=== PATIENT | male | born 1970 | race Two or more races ===

== ENCOUNTER → 2020-08-07 | Outpatient (CLI) | payer MEDICARE, OTHER ==
[~2020-08-07] MED LIST: IOHEXOL 240 MG/ML 50ML VIAL. PO ONE; IOHEXOL 300 MG/ML 100ML VIAL. IV ONE
--- NOTE | 2020-08-07 16:15 | RAD ---
EXAM: Abdomen and pelvis CT with intravenous contrast. HISTORY: Pain. TECHNIQUE: Computed tomographic images of the abdomen and pelvis were obtained following the administ ration of intravenous contrast. Multiplanar reformatting was performed. *One or more of the following individualized dose reduction techniques were utilized for this examina tion: 1. Automated exposure control. 2. Adjustment of the mA and/or kV according to patient size. 3. Use of iterative reconstruction technique. COMPARISON: None. FINDINGS: Evaluation of the lower thorax demonstrates no infiltrate or pleural effusion. There is no suspicious pulmonary nodule. There is hepatic steatosis and hepatomegaly. No suspicious hepatic lesio n is seen. The gallbladder, pancreas, spleen and adrenal glands are unremarkable. There is a 10 mm il l-defined region of hypodensity with adjacent cortical lobulation involving the posterior medial uppe r mid zone of the left kidney, the appearance of which favors focal renal cortical scarring. No convi ncing solid renal lesion is seen. There is no hydronephrosis. There is no evidence of bowel obstruction. There is no abnormal bowel wall thickening. The aorta is n ormal in caliber. There are prominent lymph nodes throughout the root of mesentery. No pathologically enlarged lymph node is seen. The bladder is unremarkable. There is no suspicious osseous lesion. The re are few benign bone islands. There is sacralization of the right L5 transverse process resulting i n significant articulation with the underlying sacrum. This is a normal variant. IMPRESSION: 1. No convincing acute abdominal or pelvic finding. 2. Hepatic steatosis is mild hepatomegaly. 3. Suspected focal renal cortical scarring involving the posterior medial upper mid zone of the left kidney. The imaging appearance does not favor a solid renal lesion. Follow-up with a renal sonogram i n 6 months can be performed for confirmation if there is clinical concern. Electronically signed by: Sarah Lamar MD (08/07/2020 4:13 PM) [id number]
== END ==
LOC: CT 08:46
PROVIDERS: ATTEND Nurse Practitioner Gerontology
DX: K76.0 Fatty (change of) liver, not elsewhere classified (principal)
CPT/HCPCS: 74177; Q9966; Q9967